=== PATIENT | female | born 1985 | race Caucasian/White ===

== ENCOUNTER → 2017-05-21 | Outpatient (CLI) | payer BC ==
[~2017-05-21] MED LIST: CETI10TA84 PO; PRENTAB26 PO
[2017-05-21 17:15] LABS: URINE APPEARANCE CLEAR (CLEAR); URINE BILIRUBIN NEG (NEG); URINE COLOR YELLOW; URINE NITRITE NEG (NEG); URINE SPECIFIC GRAVITY 1.025 (1.000-1.030); UROBILINOGEN NEG (NEG)
[2017-05-21 17:19] LABS: MANUAL MICROSCOPIC REQUIRED? NO; REVIEW REQ? NO
== END | disposition home or self-care (01) ==
LOC: C.LABSPEC 16:39
PROVIDERS: ATTEND Obstetrics & Gynecology
DX: Z34.81 Encounter for supervision of other normal pregnancy, first trimester (principal)

== ENCOUNTER → 2017-05-31 | Outpatient (CLI) | payer BC ==
[2017-05-31 14:45] LABS: BASO % 0.1 %; BASO ABS # 0.01 K/uL (0-0.2); COMPLETE YES; EOS % 3.1 %; HEMATOCRIT 38.7 % (37-47); IG% 0.2 %; LYMPH % 23.2 %; LYMPH ABS # 1.93 K/uL (1.2-3.4); MEAN CELL VOLUME 83.9 fL (80-100); MEAN CORPUSCULAR HEMOGLOBIN 28.2 pg (25-34); MEAN CORPUSCULAR HGB CONC 33.6 g/dl (32-36); MEAN PLATELET VOLUME 10.1 fL (7.4-10.4); MONO % 5.6 %; NEUT % 67.8 %; PLATELET COUNT 240 K/uL (130-400); RED BLOOD COUNT 4.61 M/uL (4.2-5.4); WHITE BLOOD COUNT 8.33 K/uL (4.8-10.8)
== END | disposition home or self-care (01) ==
LOC: C.LAB1850 13:25
PROVIDERS: ATTEND Obstetrics & Gynecology
DX: Z34.81 Encounter for supervision of other normal pregnancy, first trimester (principal); Z3A.00 Weeks of gestation of pregnancy not specified

== ENCOUNTER → 2017-05-31 | Outpatient (CLI) | payer BC ==
[2017-06-03 08:05] LABS: CHLAMYDIA TRACH RNA*** NOT DETECTED (NOT DETECTED); GC (NEIS GONORRHOEAE)RNA** NOT DETECTED (NOT DETECTED)
== END | disposition home or self-care (01) ==
LOC: C.LABSPEC 16:17
PROVIDERS: ATTEND Obstetrics & Gynecology
DX: Z34.81 Encounter for supervision of other normal pregnancy, first trimester (principal); Z3A.00 Weeks of gestation of pregnancy not specified

== ENCOUNTER 2017-07-11 21:03 | Emergency (ER) | payer BC ==
[~2017-07-11] VITALS: Ht 165.1 cm; Wt 92.8 kg
[2017-07-11 21:08] VITALS: TEMP 36.6; Ht 165.1 cm; Wt 92.8 kg
[2017-07-11] MEDS ORDERED: SODIUM CHLORIDE 0.9% 1000ML 1,000 ML IV STA (21:29)
[2017-07-11 21:39] VITALS: O2SAT 98
[2017-07-11 21:49] LABS: BASO % 0.2 %; BASO ABS # 0.02 K/uL (0-0.2); COMPLETE YES; EOS % 4.8 %; HEMATOCRIT 39.1 % (37-47); IG% 0.3 %; LYMPH % 22.4 %; LYMPH ABS # 2.18 K/uL (1.2-3.4); MEAN CELL VOLUME 82.3 fL (80-100); MEAN CORPUSCULAR HEMOGLOBIN 27.6 pg (25-34); MEAN CORPUSCULAR HGB CONC 33.5 g/dl (32-36); MEAN PLATELET VOLUME 9.3 fL (7.4-10.4); MONO % 7.5 %; NEUT % 64.8 %; PLATELET COUNT 227 K/uL (130-400); RED BLOOD COUNT 4.75 M/uL (4.2-5.4); WHITE BLOOD COUNT 9.73 K/uL (4.8-10.8)
[2017-07-11 22:08] LABS: BUN/CREATININE RATIO 17.6 (10-20); CREATININE 0.55 mg/dl (0.60-1.20); POTASSIUM 3.4 mmol/L (3.5-5.1)
[2017-07-11 22:11] LABS: ALB/GLOB RATIO 0.7 (0.9-2)
[2017-07-11] MEDS ORDERED: POTASSIUM CHLORIDE 10 MEQ TABCR PO STA (22:53)
[2017-07-11 23:25] LABS: URINE APPEARANCE CLEAR (CLEAR); URINE BILIRUBIN NEG (NEG); URINE COLOR YELLOW; URINE NITRITE NEG (NEG); URINE PH 5.5 (4.5-7.5); URINE SPECIFIC GRAVITY 1.014 (1.000-1.030); UROBILINOGEN NEG (NEG); ZZUR CULT IF INDIC CLEAN CATCH NO
[2017-07-11 23:29] LABS: MANUAL MICROSCOPIC REQUIRED? NO; REVIEW REQ? NO
[2017-07-12 00:29] VITALS: BP 120/88; PULSE 69; O2SAT 99
--- NOTE | 2017-07-12 03:26 | EMERGENCY ROOM VISIT NOTE ---
History First contact with patient: 21:24 Chief Complaint: VAGINAL BLEEDING Stated Complaint: 15 WKS , BLOODY MUCUS, SOME SHARP PAIN History of Present Illness The patient is a 32 year old female who presents to the Emergency Room with complaints of vaginal spotting who is 15 weeks . This is her second . One living child. Blood type O positive. She's had a ultrasound showed a viable IUP a few weeks ago. Patient denies chest pain, dyspnea, abdominal pain, back pain, urinary symptoms. Patient states when she wipes she has a little bit of blood tinge. Review of Systems See HPI for pertinent positives & negatives. A total of 10 systems reviewed and were otherwise negative. Past Medical/Surgical History Seasonal allergies Social History Smoking Status: Never Smoker Smokeless Tobacco Use: No Alcohol Use: none Drug Use: none Marital Status: Housing Status: lives with family Current/Historical Medications Scheduled Multivit/Min/Iron/Fol Ac/Pren ( Vitamin), PO DAILY Scheduled PRN Cetirizine (Zyrtec), 10 MG PO DAILY PRN for ALLERGIC REACTION Physical Exam Vital Signs Date Time Temp Pulse Resp B/P (MAP) Pulse Ox O2 Delivery O2 Flow Rate FiO2 07/12/17 00:29 69 20 120/88 99 07/11/17 22:46 85 16 129/84 100 Room Air 07/11/17 21:39 98 Room Air 07/11/17 21:08 36.6 95 20 135/82 98 Room Air Physical Exam VITALS: Vitals are noted on the nurse's note and reviewed by myself. Vital signs stable. GENERAL: Pleasant female, in no acute distress, nondiaphoretic, well-developed well-nourished. SKIN: Capillary reflex less than 2 seconds. HEENT: Normocephalic. PERRLA. EOMI. Nares patent. Mucous membranes moist. Neck is supple without nuchal rigidity. HEART: Regular rate and rhythm without murmurs gallops or rubs. LUNGS: Clear to auscultation bilaterally without wheezes, rales or rhonchi. No retractions or accessory muscle use. ABDOMEN: Positive bowel sounds x 4. Normal tympanic percussion. Soft, nontender, 15 weeks , no CVA tenderness without masses or organomegaly. Fink sign negative. No guarding or rebound tenderness. exam: Normal external vaginal genitalia, no bleeding in the vault. Os is closed. Diesel Bus Mechanic present MUSCULOSKELETAL: No gross musculoskeletal defects. NEURO: Patient was alert and oriented to person place and time. Normal sensation to light and sharp touch. No focal neurological deficits. Medical Decision & Procedures Laboratory Results 07/11/17 21:36 Red Blood Count 4.75, Mean Corpuscular Volume 82.3, Mean Corpuscular Hemoglobin 27.6, Mean Corpuscular Hemoglobin Concent 33.5, Mean Platelet Volume 9.3, Neutrophils (%) (Auto) 64.8, Lymphocytes (%) (Auto) 22.4, Monocytes (%) (Auto) 7.5, Eosinophils (%) (Auto) 4.8, Basophils (%) (Auto) 0.2, Neutrophils # (Auto) 6.30, Lymphocytes # (Auto) 2.18, Monocytes # (Auto) 0.73, Eosinophils # (Auto) 0.47, Basophils # (Auto) 0.02 07/11/17 21:36 Test 07/11/17 21:36 07/11/17 22:54 White Blood Count 9.73 K/uL (4.8-10.8) Red Blood Count 4.75 M/uL (4.2-5.4) Hemoglobin 13.1 g/dL (12.0-16.0) Hematocrit 39.1 % (37-47) Mean Corpuscular Volume 82.3 fL (80-100) Mean Corpuscular Hemoglobin 27.6 pg (25-34) Mean Corpuscular Hemoglobin Concent 33.5 g/dl (32-36) Platelet Count 227 K/uL (130-400) Mean Platelet Volume 9.3 fL (7.4-10.4) Neutrophils (%) (Auto) 64.8 % Lymphocytes (%) (Auto) 22.4 % Monocytes (%) (Auto) 7.5 % Eosinophils (%) (Auto) 4.8 % Basophils (%) (Auto) 0.2 % Neutrophils # (Auto) 6.30 K/uL (1.4-6.5) Lymphocytes # (Auto) 2.18 K/uL (1.2-3.4) Monocytes # (Auto) 0.73 K/uL (0.11-0.59) Eosinophils # (Auto) 0.47 K/uL (0-0.5) Basophils # (Auto) 0.02 K/uL (0-0.2) RDW Standard Deviation 38.9 fL (36.4-46.3) RDW Coefficient of Variation 12.9 % (11.5-14.5) Immature Granulocyte % (Auto) 0.3 % Immature Granulocyte # (Auto) 0.03 K/uL (0.00-0.02) Anion Gap 7.0 mmol/L (3-11) Est Creatinine Clear Calc Drug Dose 163.8 ml/min Estimated GFR () 142.8 Estimated GFR (Non- 123.2 BUN/Creatinine Ratio 17.6 (10-20) Calcium Level 9.0 mg/dl (8.5-10.1) Total Bilirubin 0.2 mg/dl (0.2-1) Aspartate Amino Transf (AST/SGOT) 11 U/L (15-37) Alanine Aminotransferase (ALT/SGPT) 15 U/L (12-78) Alkaline Phosphatase 67 U/L (45-117) Total Protein 7.2 gm/dl (6.4-8.2) Albumin 3.0 gm/dl (3.4-5.0) Globulin 4.2 gm/dl (2.5-4.0) Albumin/Globulin Ratio 0.7 (0.9-2) Human Chorionic Gonadotropin, Quant 45923 mIU/mL Urine Color YELLOW Urine Appearance CLEAR (CLEAR) Urine pH 5.5 (4.5-7.5) Urine Specific [place] 1.014 (1.000-1.030) Urine Protein NEG (NEG) Urine Glucose (UA) NEG (NEG) Urine Ketones 1+ (NEG) Urine Occult Blood NEG (NEG) Urine Nitrite NEG (NEG) Urine Bilirubin NEG (NEG) Urine Urobilinogen NEG (NEG) Urine Leukocyte Esterase NEG (NEG) Medications Administered Medications (Trade) Dose Ordered Sig/Rene Route Start Time Stop Time Status Last Admin Dose Admin Sodium Chloride 1,000 ml @ 999 mls/hr Q1H1M STAT IV 07/11/17 21:29 07/11/17 22:29 DC 07/11/17 21:43 999 MLS/HR Potassium Chloride (Klor-Con M10) 10 meq NOW STAT PO 07/11/17 22:53 07/11/17 22:54 DC 07/11/17 23:18 10 MEQ ED Course Prior records/ancillary studies reviewed. Triage Nursing notes reviewed. Additional history obtained from the family. The patient's history was concerning for vaginal bleeding and abdominal pain. Differential diagnosis: Etiologies such as ectopic , threatened miscarriage, miscarriage, UTI, dysfunction uterine bleeding, bleeding dyscrasia, trauma, infection, as well as others were entertained. Physical examination: As above. Vitals signs revealed stable. ER treatment provided: Patient was observed On reassessment the patient felt better. Diagnostic interpretation by me: The labs revealed the patient to the Rh O+. CBC, coagulation studies, and chemistries were unremarkable. Urinalysis revealed no sign of infection. Quantitative hCG was reviewed Imaging studies: Ultrasound as above US OB LIMITED: Single live IUP 16 weeks 0 days. 153 BPM. Cervix 4.5 cm. Closed appearance with minimal fluid/debris within the cervical canal. Anterior placenta. No adnexal mass or free fluid Radiologist: Shelley Gay M.D. Consultation: A consultation was placed with the cap sizer physician, Dr. aPscual. The case was discussed and diagnostics were reviewed. Recommends discharge and outpatient follow-up in a few days. This appears to be consistent with threatened miscarriage. Patient had a viable IUP in ultrasound. She is well-appearing. No active bleeding. She was advised no strenuous activity and follow-up with OB in a few days or here in the ER sooner for heavy bleeding, pain, fevers, worsening signs or symptoms or as needed. Patient did not have an acute abdomen on exam. She is tolerating fluids. She is well-appearing.. By the evaluation outlined above emergent etiologies such as bleeding dyscrasia, ectopic , trauma, as well as others were deemed relatively unlikely. The pt informed about the findings as listed above. All questions were answered and pleased with the treatment. Return instructions were outlined and the patient was discharged in stable condition. Referral: The patient was referred to BUSINESS LAW INSTRUCTOR for follow-up in 2 to 3 days for a recheck of her current condition. Case reviewed with my attending Medical Decision As above Medication Reconcilliation Current Medication List: was personally reviewed by me Blood Pressure Screening Patient's blood pressure: Normal blood pressure Impression Primary Impression: Threatened miscarriage Departure Information Dispostion Home / Self-Care Condition GOOD Referrals Michelle Cerna M.D. (PCP) Forms WORK / SCHOOL INSTRUCTIONS, HOME CARE DOCUMENTATION FORM, IMPORTANT VISIT INFORMATION Patient Instructions My [facility], ED Miscarriage Poss Additional Instructions Rest. Stay well hydrated. No strenuous activity or intercourse until cleared by BUSINESS LAW INSTRUCTOR. Acetaminophen(Tylenol) may be used for fever or pain. Use 1000mg every six hours as needed. Avoid using more than 3000mg in a 24 hour period. Rest and drink plenty of fluids as tolerated. Continue current medications. Return to the ER immediately for worsening or persistent heavy vaginal bleeding , abdominal pain, vomiting, fevers, chest pains, difficulty breathing, worsening of your condition, or as needed. Follow up with your BUSINESS LAW INSTRUCTOR in 2-3 days for a recheck of your current condition.
--- NOTE | 2017-07-12 07:47 | DIAGNOSTIC IMAGING REPORT ---
LIMITED (US) CLINICAL HISTORY: Generalized abdominal pain, bleeding, 14 wks preg COMPARISON STUDY: None. FINDINGS: A full anatomical survey was not performed for this examination. Transabdominal scanning of the fetus was obtained. The cervix is closed and measures 4.5 cm in length. There is an anterior placenta which abuts the cervical os. This is consistent with a marginal previa. This may be due to the early age. No evidence for subchorionic hematoma. Normal amniotic fluid volume. heart rate was 153 beats per minutes. age was calculated to be 16 weeks and 0 days. weight was measured to be 137 g +/- 20 grams. Trace fluid/debris seen within the cervical canal. IMPRESSION: 1. Single viable 16 week and 0 day intrauterine gestation with a heart rate of 153 bpm. 2. The cervix measures 4.5 cm in length and appears closed. There is trace fluid/debris within the cervical canal. 3. Anterior placenta which abuts the cervical os consistent with a marginal previa. This is likely due to the early age. Follow-up ultrasound at the 20 week gestational age is recommended to ensure resolution. Electronically signed by: Julio Marroquin M.D. 07/12/2017 7:46 AM Dictated Date/Time: 07/12/2017 7:39 AM
== END 2017-07-12 00:30 | disposition home or self-care (01) ==
LOC: C.EDB 21:05 → C.EDC 07-12 00:30
DX: O20.0 Threatened abortion (principal); Z3A.16 16 weeks gestation of pregnancy

== ENCOUNTER → 2017-07-16 | Outpatient (CLI) | payer BC ==
[2017-07-16 13:38] LABS: GTGD 50 Grams
[2017-07-17 16:50] LABS: AFP CONCENTRATION 48.3 NG/ML; AFP MULTIPLE OF MEDIAN 1.84; AFPTS GESTATIONAL AGE 15.9 WEEKS; AFPTS INSULIN DEP DIABETIC? NO; AFPTS MATERNAL WT 203 LBS; ALPHA-FETOPROTEIN RACE CAUCASIAN=W; HISTORY OF NTD NO; REPEAT SAMPLE? NO
== END | disposition home or self-care (01) ==
LOC: C.LAB1850 11:02
PROVIDERS: ATTEND Obstetrics & Gynecology
DX: Z34.82 Encounter for supervision of other normal pregnancy, second trimester (principal)

== ENCOUNTER → 2017-10-15 | Outpatient (CLI) | payer OTHER ==
[2017-10-15 17:19] LABS: HEMATOCRIT 33.4 % (37-47)
== END | disposition home or self-care (01) ==
LOC: C.LAB1850 15:47
PROVIDERS: ATTEND Obstetrics & Gynecology
DX: Z34.83 Encounter for supervision of other normal pregnancy, third trimester (principal); Z3A.00 Weeks of gestation of pregnancy not specified

== ENCOUNTER → 2017-10-29 | Outpatient (CLI) | payer OTHER | END | disposition home or self-care (01) | LOC: C.LAB1850 09:03 | PROVIDERS: ATTEND Obstetrics & Gynecology | DX: R39.9 Unspecified symptoms and signs involving the genitourinary system (principal); O28.1 Abnormal biochemical finding on antenatal screening of mother; Z3A.00 Weeks of gestation of pregnancy not specified ==

== ENCOUNTER 2017-12-09 23:52 | Outpatient (CLI) | payer OTHER ==
[~2017-12-09] VITALS: Ht 167.6 cm; Wt 101.2 kg
[2017-12-10 00:27] VITALS: Ht 167.6 cm; Wt 101.2 kg
--- NOTE | 2017-12-13 11:26 | EDITING REQUIRED CODING QUERY ---
DIAGNOSIS NEEDED To promote full compliance with coding requirements relating to patient care, physician participation is requested in all cases of gear machinist uncertainty. Please assist us with the question(s) below: Coding Question: The patient received care in labor and delivery on 12/10/17 as noted within the record. Please document the diagnosis that is being addressed by the medication/treatment. Provider Response: DIAGNOSIS: r/o ROM WEEKS GESTATION: 36 weeks Thank you for your assistance, Regine Becerra - Jewel Sorter
== END 2017-12-10 00:27 | disposition home or self-care (01) ==
LOC: C.LD 23:52 → C.OPB 23:52
PROVIDERS: ATTEND Obstetrics & Gynecology
DX: Z34.83 Encounter for supervision of other normal pregnancy, third trimester (principal)

== ENCOUNTER → 2017-12-10 | Outpatient (CLI) | payer OTHER | END | disposition home or self-care (01) | LOC: C.LABSPEC 13:41 | PROVIDERS: ATTEND Obstetrics & Gynecology | DX: Z34.83 Encounter for supervision of other normal pregnancy, third trimester (principal) ==

== ENCOUNTER 2018-01-03 23:53 | Inpatient (IN) | payer OTHER ==
[~2018-01-03] VITALS: Ht 165.1 cm; Wt 105.5 kg
[2018-01-04 00:54] VITALS: Ht 165.1 cm; Wt 105.5 kg
[2018-01-04 06:17] LABS: HEMATOCRIT 36.2 % (37-47); HEMOGLOBIN 11.9 g/dL (12.0-16.0); MEAN CORPUSCULAR HGB CONC 32.9 g/dl (32-36); MEAN PLATELET VOLUME 9.7 fL (7.4-10.4); PLATELET COUNT 209 K/uL (130-400); RED CELL DISTRIBUTION WIDTH CV 15.6 % (11.5-14.5); RED CELL DISTRIBUTION WIDTH SD 44.6 fL (36.4-46.3); WHITE BLOOD COUNT 13.62 K/uL (4.8-10.8)
[2018-01-04] MEDS ORDERED: BUTORPHANOL TARTRATE 1 MG/ML VIAL IV PRN (06:45)
[2018-01-04] MEDS ORDERED: OXYCODONE/ACETAMINOPHEN 5-325 TAB PO PRN (11:30)
[2018-01-04] MEDS ORDERED: HYDROCORTISONE ACETATE 25 MG SUPP PR PRN (11:30)
[2018-01-04] MEDS ORDERED: BENZOCAINE 20% AER SPR 82.5 GM CAN EXT PRN (11:30)
[2018-01-04] MEDS ORDERED: OXYTOCIN 30 UNITS/500ML NSS IV PRN (11:30)
[2018-01-04] MEDS ORDERED: SUPERCREAM 0.870 % 15GM JAR EXT PRN (11:30)
[2018-01-04] MEDS ORDERED: LANOLIN OINT EXT PRN (11:30)
--- NOTE | 2018-01-04 11:30 | Vaginal Delivery Summary ---
Vaginal Delivery Summary Predelivery diagnoses: 1. 32-year-old 001 at 40 weeks 3 days 2. Spontaneous labor 3. History of depression with last Postdelivery diagnoses: Same as above Procedure: Spontaneous vaginal delivery and repair of second-degree perineal laceration Findings: Viable male , Apgars 8 and 10, weight pending please see nursery records. Estimated blood loss: 300 mL Complications: None Description of delivery: The patient had presented in spontaneous labor and progressed to complete without epidural anesthesia. She had received 1 dose of Stadol early in her she then began to push. After approximately 1 hour and 15 minutes of pushing, she spontaneously vaginally delivered a viable male from the cephalic presentation. The head delivered in occiput posterior position, followed by bilateral shoulders and the body all at once. No nuchal cord was noted. The baby is placed on mothers abdomen, a spontaneous cry was heard. Delayed cord clamping was employed, and the cord was doubly clamped and cut after cessation of pulsation. Cord blood was obtained, and the placenta was delivered spontaneously intact with a three-vessel cord. The uterus and vagina were swabbed of all clots and debris, and Pitocin was started. The uterus became firm. The cervix vagina and perineum were inspected, and a second -degree perineal laceration was noted and repaired in standard fashion with 3-0 Vicryl in a running stitch. 10 mL of lidocaine was injected at the site for anesthesia. Excellent hemostasis was observed, all sponge instrument and needle counts were correct 2 at the conclusion of the case. The mother and the baby recovered in stable and good condition in the room.
[2018-01-04 13:50] VITALS: BP 121/75; PULSE 76; TEMP 36.5
[2018-01-04] MEDS: ACETAMINOPHEN 325 MG TAB PO PRN ×2 (14:00→19:09)
[2018-01-04 15:45] VITALS: BP 125/80; PULSE 90; TEMP 36.8
[2018-01-04 19:40] VITALS: BP 119/79; PULSE 92; TEMP 37.1
[2018-01-04] MEDS: DOCUSATE SODIUM 100 MG CAP PO SCH (19:47)
[2018-01-04 23:15] VITALS: BP 119/78; PULSE 93; TEMP 36.7
[2018-01-05] MEDS: ACETAMINOPHEN 325 MG TAB PO PRN ×3 (03:09→17:14)
[2018-01-05 03:25] VITALS: BP 123/79; PULSE 85; TEMP 36.4
[2018-01-05 06:42] LABS: HEMATOCRIT 33.6 % (37-47); HEMOGLOBIN 10.5 g/dL (12.0-16.0)
--- NOTE | 2018-01-05 06:53 | Progress Note ---
Subjective Jan 05, 2018. Subjective conversation w/ patient, physical exam Ambulation: ambulating normally Voiding: no voiding problems Passing Gas: Yes Diet Tolerance: Regular Diet Lochia: Moderate Feeding Type: Breast Feeding Pain: controlled Review of Systems Constitutional: No problem reported Respiratory: No problem reported Cardiac: No problem reported Breast: No problem reported Abdomen: No problem reported Female : No problem reported Objective Vital Signs Date Time Temp Pulse Resp B/P (MAP) Pulse Ox O2 Delivery O2 Flow Rate FiO2 01/05/18 03:25 36.4 85 18 123/79 (94) Room Air 01/04/18 23:15 36.7 93 18 119/78 (92) Room Air 01/04/18 23:15 Room Air 01/04/18 19:40 37.1 92 18 119/79 (92) Room Air 01/04/18 15:45 Room Air 01/04/18 15:45 36.8 90 18 125/80 (95) Room Air 01/04/18 13:50 36.5 76 18 121/75 (90) Room Air Physical Exam General Appearance: WELL-APPEARING, NO APPARENT DISTRESS Respiratory/Chest: no respiratory distress Cardiovascular: regular rate, rhythm Abdomen: non tender, soft Fundus: Firm Extremities: normal inspection Laboratory Results Last 24 Hours Test 01/05/18 06:17 Hemoglobin 10.5 g/dL Hematocrit 33.6 % Assessment and Plan Problem List Medical Problems: (1) Threatened miscarriage Status: Acute Post- Day#: 1 Continue Routine Care: PPD#1 doing well. Anticipate DC home tomorrow.
[2018-01-05] MEDS: DOCUSATE SODIUM 100 MG CAP PO SCH ×2 (08:00→20:39)
[2018-01-05 08:40] VITALS: BP 129/87; PULSE 95; TEMP 36.9
[2018-01-05 16:45] VITALS: BP 127/83; PULSE 93; TEMP 36.7; O2SAT 96
[2018-01-05] MEDS ORDERED: BISACODYL 5 MG TABEC PO SCH (20:00)
[2018-01-06 00:05] VITALS: BP 129/83; PULSE 90; TEMP 36.9
[2018-01-06] MEDS: ACETAMINOPHEN 325 MG TAB PO PRN ×2 (00:36→08:50)
--- NOTE | 2018-01-06 06:18 | Discharge Instructions ---
Discharge Instructions Date of Service Jan 06, 2018. Admission Reason for Admission: LABOR Discharge Discharge Diagnosis / Problem: vaginal delivery Discharge Goals Goal(s): Routine recovery after delivery Medications Continue Dispensed Medications: supercream, dermaplast, tucks, lansinoh Activity Recommendations Activity Limitations: per Instructions/Follow-up section . Instructions / Follow-Up Instructions / Follow-Up ACTIVITY RECOMMENDATIONS: * Gradual return to full activity over the next 2-3 weeks. * No lifting - nothing heavier than baby over the next 2-3 weeks. * Do not engage in vigorous exercise, sexual activity or sports until cleared by your physician. * Do not drive or operate any motorized equipment until cleared by your physician. * You may shower/bathe daily. MEDICATIONS: For discomfort or pain, you may use Acetaminophen (Tylenol), Ibuprofen (Advil), or Naproxen (Aleve) following the package directions. For constipation you may use Colace following the package directions. BREAST CARE: If you are not breast feeding: * Wear a supportive bra 24 hours a day for one to two weeks. * Avoid stimulating your breasts and nipples as much as possible during the first few weeks after delivery. * When taking a shower, have the warm water hit your back, not breasts. * When your breasts feel full, apply ice packs. Usually three to four times a day helps ease the discomfort. * Take a mild pain medication (Tylenol / Motrin) when you are uncomfortable. If breast feeding: * Use breast milk to lubricate nipples. Lansinoh cream may be used for sore nipples. You do not need to remove cream prior to breast feeding. If using a different brand of cream, check the label for directions regarding removal of cream prior to nursing. * Wear a supportive bra. * If having problems with breasts or breast feeding, call a gis consultant or your health care provider. EPISIOTOMY CARE: After delivery, if you have an episiotomy (stitches), the following steps will ease discomfort and aid healing. * For the first 24 hours after delivery, place ice packs next to your episiotomy to help reduce swelling. * After the first 24 hour-period, sitz baths, either portable or in the tub, are suggested. A shower with a shower arm sprayed over the episiotomy may be comforting. * Sherron care should be done after each voiding and bowel movement. Squirt warm water from a plastic bottle over the perineum (region of the body between the anus and urinary opening) and pat dry. * Use Dermoplast to ease discomfort. Shake container. [place] directly over the episiotomy. Place a Tucks on a clean sanitary pad next to your episiotomy. SPECIAL CARE INSTRUCTIONS: When you are discharged from the hospital, it is important for you to follow the instructions listed below: * During the first week at home, you should be able to care for yourself and your baby. In addition, the usual light household activities are encouraged. * Limit your activities to the way you feel. Do not try to clean the house or move furniture. Be sensible. * If you actively engage in sports and have done so up until the time of your delivery, you may resume these activities as soon as you feel able. This may take up to one month or even longer. Use good judgment. * Continue to take your vitamins for at least six weeks after the of your baby. * Your diet need not be limited unless you were on a special diet before your delivery. Breast-feeding mothers need around 2500 calories per day and at least 64-80 ounces of fluid per day (8 to 10 glasses). * You should eat foods from the four major food groups. Crash diets or fad diets are to be avoided. Eating lean meats, fresh fruits and vegetables, low-fat dairy products, high fiber foods and a regular exercise program, will help you get back to your pre- weight without putting your health at risk. * Constipation is sometimes a problem after delivery. Take a mild laxative as needed. If breast feeding, Milk of Magnesia is acceptable to use. You may use a suppository or Fleets enema if no episiotomy. * A daily shower or tub bath is suggested. Be sure to thoroughly and gently dry the perineum. * A bloody vaginal discharge will usually continue until around four weeks post . A small amount of bleeding may continue for as long as six weeks. Vaginal discharge changes from the bright red bleeding after delivery to pink then brownish and finally yellowish-pink before becoming white and disappearing. * Bleeding may increase with activity. Your first period may come in 4-8 weeks. If you are breast feeding, your period may be delayed even longer. * [place] (sex) can begin whenever both you and your partner feel comfortable and do not have any form of genital infection. It is recommended that you wait at least six weeks for internal and external healing to occur. If you have questions, please talk to your health care practitioner. A condom should be used to prevent infection and . * Foreplay, gentle intercourse and lubrication is very important the first several times to prevent pain. A water-based lubricant such as K-Y jelly or Astroglide may be used. * If you have RH negative blood and your baby is RH positive, you will receive RHOGAM by injection prior to discharge. The nurse will give you a card to keep with you that has the date and place that you received RHOGAM after delivery. * During your care, you had a Rubella screen done to check for the presence of rubella antibodies in your blood. If your test was negative, you will receive a Rubella vaccine prior to discharge. This vaccine may cause a fever, soreness at the injection site and flu-like symptoms. If these symptoms persist, notify your health care practitioner. is not advised for one month after a Rubella vaccine. * Verbalizes understanding of car seat law as reviewed with patient nursing. * Car Seat hand-out given and reviewed with patient by nursing. * Shaken baby information reviewed with patient by nursing. Call you doctor if: * Heavy bleeding (saturating several pads an hour) or passing clots the size of your fist. * A fever >101 degrees F (38.3 degrees C) on two occasions four hours apart and /or chills. * Unusual pain in the pelvic or vaginal areas. * "Baby Blues" lasting longer than two weeks. If you have any questions or concerns, call your health care practitioner at . FOLLOW UP VISIT: * Please call the office at to schedule a 6 week examination. It is important you keep this appointment. It is important for you to make arrangements for either yearly or twice yearly check-ups thereafter. Current Hospital Diet Patient's current hospital diet: Regular OB Diet Discharge Diet Recommended Diet: Regular Diet, Regular OB Diet Pending Studies Studies pending at discharge: no Medical Emergencies . Who to Call and When: Medical Emergencies: If at any time you feel your situation is an emergency, please call [phone] immediately. . Non-Emergent Contact Non-Emergency issues call your: Primary Care Provider, [facility] [employer] . . "Provider Documentation" section prepared by Raul Aleman. .
--- NOTE | 2018-01-06 06:55 | Progress Note ---
Subjective Jan 06, 2018. Subjective conversation w/ patient, physical exam, chart review, lab review Ambulation: ambulating normally Voiding: no voiding problems Passing Gas: Yes Diet Tolerance: Regular Diet Lochia: Small Feeding Type: Breast Feeding Review of Systems Constitutional: No fever, No chills Respiratory: No cough, No sputum, No shortness of breath Cardiac: No chest pain, No palpitations Abdomen: No pain, No nausea, No vomiting Female : No dysuria Objective Vital Signs Date Time Temp Pulse Resp B/P (MAP) Pulse Ox O2 Delivery O2 Flow Rate FiO2 01/06/18 00:05 Room Air 01/06/18 00:05 36.9 90 18 129/83 (98) 01/05/18 16:45 36.7 93 18 127/83 (98) 96 Room Air 01/05/18 16:45 Room Air 01/05/18 08:40 Room Air 01/05/18 08:40 36.9 95 16 129/87 (101) Room Air Physical Exam General Appearance: WELL-APPEARING, WD/WN, NO APPARENT DISTRESS Respiratory/Chest: lungs clear, no respiratory distress Cardiovascular: regular rate, rhythm, no murmur Abdomen: non tender, soft Fundus: Firm Extremities: non-tender, normal inspection Assessment and Plan Problem List Medical Problems: (1) Threatened miscarriage Status: Acute Post- Day#: 2 Continue Routine Care: 32 yo, f, , O+/GBS-/RI, PPD2. Patient is doing well clinically. Vitals reviewed, WNL. 1. Recovery from vaginal delivery---PPD2--discussed dc planning with patient-- will f/u in 6wks Resident Physician Supervision Note: I interviewed and examined the patient. Discussed with Dr. Aleman and agree with findings and plan as documented in the note. Any exceptions or clarifications are listed here: PPD#2 doing well. Patient is requesting a Prozac Rx - she had depression in previous , no current symptoms, but would like to stave off future problems. Followup in 2 weeks in office to check on depression symptoms. Discharge to home today. Documented By: Shena Alcocer
[2018-01-06] MEDS ORDERED: FLUO10CA48 PO (07:14)
[2018-01-06 07:30] VITALS: BP 136/84; PULSE 89; TEMP 36.4; O2SAT 99
[2018-01-06] MEDS: DOCUSATE SODIUM 100 MG CAP PO SCH (10:15)
[2018-01-06 16:00] VITALS: BP_DIAS 84; PULSE 89; TEMP 36.4
== END 2018-01-06 16:45 | disposition home or self-care (01) | DRG 775 ==
LOC: C.LD 23:53 → C.OPB 23:53 → C.LD 01-04 05:38 → C.OPB 01-04 05:42 → C.OBG 01-04 13:52
PROVIDERS: ADMIT Obstetrics & Gynecology; ATTEND Obstetrics & Gynecology
PROC: 10E0XZZ Delivery of Products of Conception, External Approach (ICD-10-PCS; principal; 2018-01-04)
PROC: 0KQM0ZZ Repair Perineum Muscle, Open Approach (ICD-10-PCS; principal; 2018-01-04)
PROC: 4A1H7CZ Monitoring of Products of Conception, Cardiac Rate, Via Natural or Artificial Opening (ICD-10-PCS; 2018-01-04)
PROC: 10H073Z Insertion of Monitoring Electrode into Products of Conception, Via Natural or Artificial Opening (ICD-10-PCS; 2018-01-04)
DX: O70.1 Second degree perineal laceration during delivery (principal); O76 Abnormality in fetal heart rate and rhythm complicating labor and delivery; O09.893 Supervision of other high risk pregnancies, third trimester; Z3A.40 40 weeks gestation of pregnancy; Z37.0 Single live birth; Z87.59 Personal history of other complications of pregnancy, childbirth and the puerperium

== ENCOUNTER → 2018-01-10 | Outpatient (CLI) | payer OTHER ==
[~2018-01-10] MED LIST changes: +FLUO10CA48 PO
== END | disposition home or self-care (01) ==
LOC: C.LAB1850 14:42
PROVIDERS: ATTEND Obstetrics & Gynecology
DX: M54.5 Low back pain (principal)

== ENCOUNTER 2018-01-30 07:59 | Emergency (ER) | payer OTHER ==
[~2018-01-30] VITALS: Ht 165.1 cm; Wt 92.0 kg
[2018-01-30 08:04] VITALS: Ht 165.1 cm; Wt 92.0 kg
--- NOTE | 2018-01-30 08:19 | EMERGENCY ROOM VISIT NOTE ---
History First contact with patient: 08:07 Chief Complaint: SHORTNESS OF BREATH Stated Complaint: dizzy, shortness of breath 3weeks post History of Present Illness The patient is a 32 year old female who presents to the Emergency Room via private vehicle with complaints of "shortness of breath". The patient states that she delivered 3 weeks ago vaginally. Uncomplicated and delivery. She states that she has had intermittent shortness of breath for the past few days, but today one half hour prior to arrival while in the shower she developed tunnel vision, dizziness and shortness of breath which has been persistent. There is no chest pain but she notes minimal chest tightness. She feels as though her voice is hoarse. She is concerned she may have a pulmonary embolism. She denies any leg swelling, hemoptysis, or cough. She notes minimal vaginal bleeding but she states only what is normal. Review of Systems A complete 10-point Review of Systems was discussed with the patient, with pertinent positives and negatives listed in the History of Present Illness. All remaining Review of Systems questions can be considered negative unless otherwise specified. Past Medical/Surgical History Vaginal delivery 3 weeks ago Family History Non contributory Social History Smoking Status: Never Smoker Alcohol Use: none Drug Use: none Marital Status: Housing Status: lives with family Current/Historical Medications Scheduled Multivit/Min/Iron/Fol Ac/Pren ( Vitamin), PO DAILY Scheduled PRN Cetirizine (Zyrtec), 10 MG PO DAILY PRN for ALLERGIC REACTION Physical Exam Vital Signs Date Time Temp Pulse Resp B/P (MAP) Pulse Ox O2 Delivery O2 Flow Rate FiO2 01/30/18 11:06 37.0 111 18 131/79 97 01/30/18 11:02 111 18 131/79 97 Room Air 01/30/18 09:56 97 16 125/74 96 Room Air 01/30/18 08:52 100 18 121/68 97 Room Air 01/30/18 08:52 94 Room Air 01/30/18 08:33 110 01/30/18 08:28 95 Room Air 01/30/18 08:04 37.0 122 18 126/80 96 Room Air Physical Exam VITAL SIGNS - Vital signs and nursing notes were reviewed. Tachycardic. She is normotensive, afebrile and is saturating well on room air at 96%. GENERAL -32-year-old female appearing her stated age who is in no acute distress. Communicates well with provider and answers questions appropriately. SKIN - Without rashes. No meningeal or petechial rash. HEAD - NC/AT. EYES - PERRL with EOMI bilaterally. Sclera anicteric. Palpebral conjunctiva pink and moist with no injection noted. EARS - No deformities of external structures noted on gross examination bilaterally. External auditory canals without discharge or otorrhea. Tympanic membranes pearly allen without retraction or bulging. No fluid or purulent material visualized behind the TM. Handle of malleus, umbo, cone of light, pars tensa/flaccid all easily visualized. NOSE - Midline and without cyanosis. No epistaxis or purulent drainage noted. Septum midline without deviation or septal hematoma noted. MOUTH/OROPHARYNX - Without perioral cyanosis. Buccal mucosa pink and moist and without leukoplakia. Tongue midline with equal elevation of palate bilaterally. No tonsillar hypertrophy, erythema, or exudates noted. Fair dentition noted. NECK - Neck with FROM. Supple to palpation. No lymphadenopathy noted. No nuchal rigidity. LUNGS - Chest wall symmetric without accessory muscle use, intercostals retractions, or central cyanosis. Normal vesicular breath sounds CTA B/L. No wheezes, rales, or rhonchi appreciated. CARDIAC - RRR with S1/S2. No murmur, rubs, or gallops appreciated. ABDOMEN - Abdominal contour normal without pulsations or visible masses. No tenderness, palpable masses, hepatosplenomegaly, or ascites noted. EXTREMITIES - No clubbing or peripheral cyanosis. No pretibial edema present. + 5/5 strength noted in UE/LE bilaterally. NEUROLOGIC - Cranial nerves II through XII grossly intact. Sensory intact to light touch throughout. PSYCH - A&O, and cooperates fully with examiner. Pt is very pleasant and interacts well with examiner. Medical Decision & Procedures ER Provider Diagnostic Interpretation: (CHEST FOR PE) ANGIO WITH CT DOSE: 415.35 mGy.cm HISTORY: Chest pain dyspnea TECHNIQUE: Multiaxial CT images of the chest were performed following the intravenous administration of contrast to evaluate the pulmonary arteries. Maximal intensity projection images were also obtained. A dose lowering technique was utilized adhering to the principles of ALARA. COMPARISON STUDY: None. FINDINGS: There is a normal caliber thoracic aorta with no evidence for dissection. There is no evidence for pulmonary embolus. No pleural effusions. No pneumothorax. The liver and spleen are unremarkable. No mediastinal or hilar lymphadenopathy. The central airways are patent. The lungs are clear. IMPRESSION: No evidence for pulmonary embolus. The lungs are clear. The above report was generated using voice recognition software. It may contain grammatical, syntax or spelling errors. Electronically signed by: Roshan Hernandez M.D. 01/30/2018 10:00 AM Dictated Date/Time: 01/30/2018 9:54 AM Laboratory Results 01/30/18 08:40 Red Blood Count 4.97, Mean Corpuscular Volume 79.3, Mean Corpuscular Hemoglobin 26.6, Mean Corpuscular Hemoglobin Concent 33.5, Mean Platelet Volume 9.3, Neutrophils (%) (Auto) 87.4, Lymphocytes (%) (Auto) 7.4, Monocytes (%) (Auto) 4.1, Eosinophils (%) (Auto) 0.7, Basophils (%) (Auto) 0.1, Neutrophils # (Auto) 8.60, Lymphocytes # (Auto) 0.73, Monocytes # (Auto) 0.40, Eosinophils # (Auto) 0.07, Basophils # (Auto) 0.01 01/30/18 08:40 Test 01/30/18 08:40 01/30/18 10:25 White Blood Count 9.84 K/uL (4.8-10.8) Red Blood Count 4.97 M/uL (4.2-5.4) Hemoglobin 13.2 g/dL (12.0-16.0) Hematocrit 39.4 % (37-47) Mean Corpuscular Volume 79.3 fL (80-100) Mean Corpuscular Hemoglobin 26.6 pg (25-34) Mean Corpuscular Hemoglobin Concent 33.5 g/dl (32-36) Platelet Count 175 K/uL (130-400) Mean Platelet Volume 9.3 fL (7.4-10.4) Neutrophils (%) (Auto) 87.4 % Lymphocytes (%) (Auto) 7.4 % Monocytes (%) (Auto) 4.1 % Eosinophils (%) (Auto) 0.7 % Basophils (%) (Auto) 0.1 % Neutrophils # (Auto) 8.60 K/uL (1.4-6.5) Lymphocytes # (Auto) 0.73 K/uL (1.2-3.4) Monocytes # (Auto) 0.40 K/uL (0.11-0.59) Eosinophils # (Auto) 0.07 K/uL (0-0.5) Basophils # (Auto) 0.01 K/uL (0-0.2) RDW Standard Deviation 46.0 fL (36.4-46.3) RDW Coefficient of Variation 15.7 % (11.5-14.5) Immature Granulocyte % (Auto) 0.3 % Immature Granulocyte # (Auto) 0.03 K/uL (0.00-0.02) Prothrombin Time 10.1 SECONDS (9.0-12.0) Prothromb Time International Ratio 1.0 (0.9-1.1) Activated Partial Thromboplast Time 25.9 SECONDS (21.0-31.0) Partial Thromboplastin Ratio 1.0 Anion Gap 8.0 mmol/L (3-11) Est Creatinine Clear Calc Drug Dose 142.4 ml/min Estimated GFR () 136.6 Estimated GFR (Non- 117.9 BUN/Creatinine Ratio 14.5 (10-20) Calcium Level 8.6 mg/dl (8.5-10.1) Magnesium Level 1.9 mg/dl (1.8-2.4) Total Bilirubin 0.7 mg/dl (0.2-1) Aspartate Amino Transf (AST/SGOT) 18 U/L (15-37) Alanine Aminotransferase (ALT/SGPT) 30 U/L (12-78) Alkaline Phosphatase 109 U/L (45-117) Troponin I < 0.015 ng/ml (0-0.045) Total Protein 7.5 gm/dl (6.4-8.2) Albumin 3.5 gm/dl (3.4-5.0) Globulin 4.0 gm/dl (2.5-4.0) Albumin/Globulin Ratio 0.9 (0.9-2) Lipase 102 U/L (73-393) Thyroid Stimulating Hormone (TSH) 0.768 uIu/ml (0.300-4.500) Urine Color YELLOW Urine Appearance CLEAR (CLEAR) Urine pH 8.0 (4.5-7.5) Urine Specific [place] 1.041 (1.000-1.030) Urine Protein NEG (NEG) Urine Glucose (UA) NEG (NEG) Urine Ketones NEG (NEG) Urine Occult Blood 2+ (NEG) Urine Nitrite NEG (NEG) Urine Bilirubin NEG (NEG) Urine Urobilinogen NEG (NEG) Urine Leukocyte Esterase MODERATE (NEG) Urine WBC (Auto) 5-10 /hpf (0-5) Urine RBC (Auto) 10-30 /hpf (0-4) Urine Hyaline Casts (Auto) 1-5 /lpf (0-5) Urine Epithelial Cells (Auto) 10-20 /lpf (0-5) Urine Bacteria (Auto) NEG (NEG) Medical Decision Patient was seen and evaluated as above. Review was performed of nursing notes and vital signs. After obtaining a thorough history and physical examination the above work up was performed. She presents to us today with shortness of breath. She is 3 weeks . There is no abdominal pain. No real chest pain. EKG was obtained and reveals sinus tachycardia at a rate of 102 bpm per my interpretation. No evidence of SD or PE. Using shared decision making and secondary to her presentation I did elect to obtain a CT scan of the chest. This reveals no PE. She is to discard breast milk for 24 hours after the contrast dye. She does note a small amount of erythema on the right breast. No evidence of mastitis. She is to closely watch this. I do recommend follow- up with the family doctor for further evaluation and management or return here with worsening. I did discuss with her whether or not to initiate IV fluids and through utilizing shared decision making the preferences for her to go home and drink fluids. Labs reveal no leukocytosis, anemia, or metabolic emergency. UA I favor to be contaminated and she has no UTI sx. Culture pending. The patient was educated upon management, had questions answered prior to discharge , and was discharged home in good condition. Case was discussed with the attending physician. In the evaluation and treatment of this patient the following differential diagnoses were entertained: SD, PE, dehydration, pericarditis, costochondritis, mastitis, sepsis, anemia, among others. Impression Primary Impression: Shortness of breath Departure Information Dispostion Home / Self-Care Condition GOOD Referrals No Doctor, Assigned (PCP) Patient Instructions My [facility] Additional Instructions You were seen in the emergency department for shortness of breath. At this time the CAT scan of your chest is negative for pulmonary embolism. I would recommend that you stay well-hydrated. Please call your family doctor to schedule follow-up. Please return with any new/concerning symptoms.
[2018-01-30 08:28] VITALS: O2SAT 95
[2018-01-30] MEDS ORDERED: OPTIRAY 320 IV PRN (08:30)
[2018-01-30 08:50] LABS: BASO % 0.1 %; BASO ABS # 0.01 K/uL (0-0.2); EOS % 0.7 %; EOS ABS # 0.07 K/uL (0-0.5); HEMATOCRIT 39.4 % (37-47); HEMOGLOBIN 13.2 g/dL (12.0-16.0); IG# 0.03 K/uL (0.00-0.02); LYMPH % 7.4 %; LYMPH ABS # 0.73 K/uL (1.2-3.4); MEAN CELL VOLUME 79.3 fL (80-100); MEAN CORPUSCULAR HEMOGLOBIN 26.6 pg (25-34); MEAN CORPUSCULAR HGB CONC 33.5 g/dl (32-36); MEAN PLATELET VOLUME 9.3 fL (7.4-10.4); MONO % 4.1 %; NEUT % 87.4 %; PLATELET COUNT 175 K/uL (130-400); RED CELL DISTRIBUTION WIDTH CV 15.7 % (11.5-14.5); WHITE BLOOD COUNT 9.84 K/uL (4.8-10.8)
[2018-01-30 08:58] LABS: PTT PATIENT 25.9 SECONDS (21.0-31.0)
[2018-01-30 09:07] LABS: ALBUMIN 3.5 gm/dl (3.4-5.0); ALT/SGPT 30 U/L (12-78); AST/SGOT 18 U/L (15-37); BLOOD UREA NITROGEN 9 mg/dl (7-18); CALCIUM 8.6 mg/dl (8.5-10.1); CARBON DIOXIDE 24 mmol/L (21-32); CREATININE 0.63 mg/dl (0.60-1.20); GLUCOSE 83 mg/dl (70-99); LIPASE 102 U/L (73-393); POTASSIUM 3.7 mmol/L (3.5-5.1); SODIUM 137 mmol/L (136-145)
[2018-01-30 09:18] LABS: ALKALINE PHOSPHATASE 109 U/L (45-117); TOTAL PROTEIN 7.5 gm/dl (6.4-8.2)
--- NOTE | 2018-01-30 10:01 | DIAGNOSTIC IMAGING REPORT ---
(CHEST FOR PE) ANGIO WITH CT DOSE: 415.35 mGy.cm HISTORY: Chest pain dyspnea TECHNIQUE: Multiaxial CT images of the chest were performed following the intravenous administration of contrast to evaluate the pulmonary arteries. Maximal intensity projection images were also obtained. A dose lowering technique was utilized adhering to the principles of ALARA. COMPARISON STUDY: None. FINDINGS: There is a normal caliber thoracic aorta with no evidence for dissection. There is no evidence for pulmonary embolus. No pleural effusions. No pneumothorax. The liver and spleen are unremarkable. No mediastinal or hilar lymphadenopathy. The central airways are patent. The lungs are clear. IMPRESSION: No evidence for pulmonary embolus. The lungs are clear. The above report was generated using voice recognition software. It may contain grammatical, syntax or spelling errors. Electronically signed by: Roshan Hernandez M.D. 01/30/2018 10:00 AM Dictated Date/Time: 01/30/2018 9:54 AM
[2018-01-30 11:06] VITALS: BP 131/79; PULSE 111; TEMP 37; O2SAT 97
== END 2018-01-30 11:06 | disposition home or self-care (01) ==
LOC: C.EDB 08:02
DX: R06.02 Shortness of breath (principal)